=== PATIENT | male | born 1990 | race Caucasian/White ===

== ENCOUNTER 2024-05-14 18:32 | Inpatient (IN) | payer OTHER, SELFPAY ==
[2024-05-14 13:23] VITALS: BP 132/84
--- NOTE | 2024-05-14 13:33 | ED.GENMED ---
History of Present Illness
General
Chief Complaint: Chest Pain
Source: patient
Exam Limitations: none
Time Seen by Provider: 05/14/24 13:26
Nursing documentation reviewed up to this point in time: agreed with
History of Present Illness
History of Present Illness:
34-year-old male with a past medical history of Lzrdo-Jnxtqbxhj-Nnrzr who presents to the ER for evaluation of chest pain. Patient reports symptoms started Saturday morning and have been consistent although waxing and waning intensity since then. He
reports a sharp pain worse with inspiration. Denies any associated shortness of breath. Denies any nausea, vomiting. He has had low-grade fever he says. He says that initially he was seen at [facility] yesterday and had a workup there
(paperwork shows he had serial troponins which were flat, marginally elevated�high-sensitivity troponin of 40, 48; also had elevated CRP and ESR and a negative D-dimer) and ultimately was diagnosed with pericarditis and was discharged. He returns
today because he says this morning the pain was worse and he decided to come for reassessment here. He says since arrival in the ER his symptoms have abated and his symptoms are quite mild now. 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
any medication and cannot recall who he saw previously for cardiology.
Past History
Past History
ED Past Medical History: Other (Qxzua-Pycjhmvxn-Wapcs)
ED Past Surgical History: None
Social History
Tobacco: Smoker
Alcohol: Binge drinker
Review of Systems
Review of Systems
All Other Systems: ROS reviewed and negative except as documented in HPI and ROS
Constitutional: Reports fever; Denies chills
Respiratory: Denies cough or trouble breathing
Cardiac: Reports chest pain; Denies diaphoresis, palpitations or syncope
ABD/GI: Denies abdominal pain, nausea or vomiting
: Denies flank pain
Musculoskeletal: Denies neck pain or back pain
Neurological: Denies dizzy or headache
Phy Exam
Physical Exam
Physical Exam:
General: Awake, alert, oriented x3; no acute distress
Head: Normocephalic, atraumatic
Eyes: Conjunctiva normal, sclera anicteric
Throat: Airway intact, handling secretions
Neck: Trachea midline, supple without meningismus
Lungs: Clear to auscultation bilaterally, no wheezing, rales, rhonchi
Heart: Regular rate and rhythm, no murmurs, gallops, or rubs appreciated
Abd: Soft, non distended, nontender
Neuro: No gross deficits
Extremities: No edema in extremities, equal pulses in all extremities
Scores
Heart Failure Risk
Heart Failure Risk Score: Not Applicable
Heart Score for Chest Pain Patients
STEMI patient?: No
History: Slightly or Non-Suspicious
ECG: Nonspecific Repolarization
Age: </= 45 years
Risk Factors: No Risk Factors
Troponin: </= Normal Limit
Heart Score for Chest Pain Patients: 1
Heart Score Risk: 2.5% MACE over next 6 weeks
Withdrawal Assessment of Alcohol
Withdrawal Assessment Completed?: Not applicable
Course
Orders/Labs/Results
Orders:
Orders
05/14/24 13:11
EKG [Electrocardiogram (*1)] Urgent
Reason for Study: Chest Pain
Electrocardiogram (*1) Urgent
Reason for Study: Chest Pain
EKG- Treatment ONCE
EKG- Treatment ONCE
05/14/24 13:29
C-Reactive Protein Urgent
Comment: ADD ON
Complete Blood Count/With Diff Urgent
Comprehensive Metabolic Panel Urgent
ESR [Erythrocyte Sed Rate] Urgent
Protime/PTT Urgent
Troponin I Urgent
05/14/24 13:32
CARDIOLOGY CONSULT Urgent
Consulting Provider: Edy Reese
Was physician already notified: Yes
CR Chest - 2 Views Urgent
Comment:
Reason For Exam: chest pain
05/14/24 13:33
Echo 2D MMode Color/Doppler Urgent
Reason for Study: chest pain
Cardiology Consult: Edy Reese
05/14/24 13:51
Add On- LAB Urgent
Tests Added?: CRP
05/14/24 15:58
Add On- LAB Routine
Tests Added?: ESR
05/14/24 16:05
Ketorolac [Toradol] 15 mg IV NOW STA
05/14/24 16:16
Colchicine 0.6 mg PO NOW STA
05/14/24 16:29
Troponin I Urgent
05/14/24 16:50
Electrocardiogram (*1) Urgent
Reason for Study: Chest Pain
EKG- Treatment ONCE
05/14/24 16:56
MR Card Mri Morph & Funct Wo/w Routine
Comment:
Reason For Exam: Myopericarditis
OK for patient to be off Cardiac Monitoring for MRI: No
Recent pill cam endoscopy?: No
Pacemaker/Defibrillator?: No
Brain Aneurysm Clips?: No
Have you ever worked with metal? grinding metal? welding?: No
Cochlear(ear) implants?: No
Does Pt have a Temp Sensing Cath?: No
Does the patient have IV access?: No
Does the patient have any stents?: No
Abnormal Lab Results
05/14/24
13:29
WBC 14.1 H 10^3/uL
(4.8-10.8)
Absolute Neuts (auto) 10.8 H 10^3/uL
(1.4-6.5)
Absolute Monos (auto) 0.9 H 10^3/uL
(0.1-0.6)
Neutrophils % 76.6 H %
(42.2-75.2)
Lymphocytes % 15.8 L %
(20.5-51.1)
ESR 21 H mm/hour
(0-20)
Glucose 102 H mg/dl
(70-99)
Troponin I 0.036 H* ng/ml
C-Reactive Protein 158.60 H mg/L
(0.0-10.00)
05/14/24 13:29
05/14/24 13:29
Vital Signs
Initial and Last Documented VS:
Initial Vital Signs
Temp Pulse Resp BP Pulse Ox
36.7 C 126 27 132/84 95
05/14/24 13:23 05/14/24 13:23 05/14/24 13:23 05/14/24 13:23 05/14/24 13:23
Last Documented Vital Signs
Temp Pulse Resp BP Pulse Ox
36.7 C 104 24 132/84 96
05/14/24 13:23 05/14/24 14:45 05/14/24 14:45 05/14/24 13:23 05/14/24 14:45
MDM/Problems Addressed
Differential Diagnosis Includes:
Pericarditis, myocarditis, ACS, pneumothorax, pneumonia
MDM/Problems Addressed:
34-year-old male presents for evaluation of atypical/pleuritic chest pain for the past few days waxing waning intensity; diagnosed with pericarditis yesterday [facility] after elevated inflammatory markers and flat troponins. He says symptoms
increased today and he decided to come to the ER to be evaluated here. He arrived was tachycardic, mild tachypnea, normotensive. His EKG on arrival shows sinus tachycardia with ST changes initially read out as STEMI. Case was immediately
discussed with general cardiology who came to the bedside to assess given his recent history low suspicion that this is an acute STEMI especially 34-year-old an EKG certainly could be consistent with acute pericarditis. Will plan for stat
echocardiogram, hold off on activating [employer] for now. Labs sent off including CBC and a CMP, inflammatory markers, troponin level. Will check chest x-ray as well. Monitor closely reassess after the above.
Echocardiogram normal no effusion and no regional wall motion abnormalities. Labs showed marginal leukocytosis, CMP unremarkable. ESR and CRP are elevated. Troponin marginal at 0.036. Repeat downtrending 0.033. Chest x-ray shows no acute
disease. Case discussed with cardiology clinical suspicion at this point is for acute pericarditis however with troponin elevation and abnormal EKG cardiology recommending admission for trending of troponins and consideration for cardiac MRI. Case
discussed with hospitalist for admission.
*Radiology
Radiology exam reviewed: radiology read reviewed
*Pulse Oximetry
Patient hypoxic: no
*EKG
Interpreted by ED Provider?: Yes
Heart Rate: 109
Rate: tachycardiac
Rhythm: sinus tachycardia
[place]: normal axis
Interval: normal interval
QRS Pattern: normal QRS
Ischemia: non-specific ST changes (Diffuse ST changes)
*Critical Care Note
Total Time (30-74mins, 75-104mins- exclusive of procedures): Not Applicable
Data Reviewed
Review of Other/Old Records Reveals: Labs (Reviewed external labs from visit to [facility] yesterday which patient provided) and Records (Reviewed records which patient provided from [facility])
Source: patient and records
Patient Management
Discussion with other providers: Hospitalist (Discussed with hospitalist) and Signal Repairer (Discussed with interventional cardiology)
Escalation/DeEscalation of care consider admission/obs:
Admission indicated.
ED Attending Note
-
Portions of this chart may have been created with voice recognition software.� Occasional wrong word or��sound alike� substitutions may have occurred due to the inherent limitations of voice recognition software.
Discharge Plan
Departure
Patient Disposition: Admit
Date of Disposition: 05/14/24
Time of Disposition: 17:40
Admit to doctor: Harley
Presentation/result/management discussed w/ accepting MD/DO: Hospitalist
Discharge Problem:
Pericarditis, Chest pain
Prescriptions:
No Action
biotin 5 mg Capsule
5 mg PO DAILY
ibuprofen 800 mg Tablet
800 mg PO Q6HPRN PRN (Reason: mild pain)
aspirin 81 mg Tablet,Delayed Release (Dr/Ec)
162 mg PO BIDPRN PRN (Reason: chest pains)
melatonin 5 mg Tablet
5 mg PO HSPRN PRN (Reason: sleep)
doris extract 500 mg Capsule
500 mg PO DAILY
Emergen-C 1,000 mg Powder Effervescent In Packet
1 ea PO DAILY
turmeric root extract 1,053 mg Tablet
1,076 mg PO DAILY
Referrals:
UNKNOWN - PT DOES,NOT KNOW [Family Provider] -
Interventions
Interventions:
*Risk Screen - Suicide Last Done: 05/14/24 13:23
*General Assessment Last Done: 05/14/24 13:23
*Neglect/Abuse Screening Last Done: 05/14/24 13:23
ED- Cardiac Assessment Last Done: 05/14/24 13:35
Discharge Date and Time
Print Language: UZBEK
[2024-05-14 13:48] LABS: % Basophils 0.2 % (0-2); % Eosinophils 0.6 % (0-6); % Immature Granulocytes 0.3 % (0-0.5); % Lymphocytes 15.8 % (20.5-51.1); % Monocytes 6.5 % (1.7-9.3); % Neutrophils 76.6 % (42.2-75.2); Absolute Eosinophils 0.1 10^3/uL (0-0.7); Absolute Lymphocytes 2.2 10^3/uL (1.2-3.4); Absolute Monocytes 0.9 10^3/uL (0.1-0.6); Absolute Neutrophils 10.8 10^3/uL (1.4-6.5); Hematocrit 44.6 % (39.0-52.0); Hemoglobin 15.5 g/dL (13.0-18.0); Mean Corp Hgb Conc. 34.8 g/dL (33.0-37.0); Mean Corpuscular Hgb 29.5 pg (27.0-31.0); Mean Platelet Volume 9.7 fL (7.4-10.4); Nucleated Red Blood Cells % 0 % (-); Platelet Count 250 10^3/uL (130-400); Red Blood Cell Count 5.25 10^6/uL (4.70-6.10); Red Cell Dist. Width 11.9 % (11.5-14.5); White Blood Cell Count 14.1 10^3/uL (4.8-10.8)
--- NOTE | 2024-05-14 13:52 | CON.CAR ---
Consultation
Consultation Request
Date/Time Consultation Requested: 05/14/2024; 13:19
Date/Time Consultation Performed: 05/14/2024; 13:40
Requesting Provider: Theodore Canseco M.D.
Performing Provider: Edy Reese D.O.
Reason for Consultation: Chest pain, ST elevation.
Medical History
-
Chief Complaint: Chest pain x 3 days.
History of Present Illness:
34 y/o male with WPW but not on any medications presenting with chest pain, described as a 'pressure' sensation for the past three days. The patient attended the [employer] game, where the second string team soundly defeated an abysmal [employer] squad. On Saturday morning, he awoke with chest discomfort. The discomfort is exacerbated by a laying position. It is noticeable with deep inspiration, but does not limit respiration. It improves with sitting up and standing. There is
no exacerbation with activity.
The patient had continued chest pain through yesterday, when he presented to [facility]. He was evaluated and diagnosed with pericarditis. He was discharged with an Rx for ibuprofen. This morning, the patient had chills/rigors. He
believes he had a fever, but did not take a temperature. He reports testing negative for COVID/Influenza. His mother saw him this morning and brought him to [place] ER for further evaluation. EKG showed ST elevations in leads I/aVL concerning
for acute STEMI. STEMI alert was called, but cancelled after further review showed that there are diffuse, non-specific TOBI and his clinical story being less consistent with ACS.
At the time of evaluation, the patient is feeling generally improved. He is sitting up and denies chest pain at this time. He denies any associated shortness in breath, palpitations, syncope or presyncope.
Past Medical History
Past Medical History: Arrhythmias (WPW - not on medications.)
Past Surgical History: Other ([place] tooth extraction.)
Social History
Tobacco: Vaping
Alcohol: Occasional
Drug: None
Personal: Partner (Engaged.)
Living: Alone
Employment: Employed
Family History
Family History: CAD (Maternal grandmother and grandfather.)
Allergies / Home Medications
Allergy/AdvReac Type Severity Reaction Status Date / Time
No Known Allergies Allergy Verified 05/14/24 13:18
�Medication �Instructions �Recorded �Confirmed �Type
propranolol 10 mg tablet 10 mg PO DAILY PRN palpitations 07/03/14 07/03/14 History
Review of Systems
-
History Source: Patient and Family
All other systems: Negative unless noted
Constitutional: Fever
EENT: No Symptoms
Respiratory: No Symptoms
Cardiac: Chest Pain and Diaphoresis
Abdomen/GI: No Symptoms
: No Symptoms
Musculoskeletal: No Symptoms
Skin: No Symptoms
Neurological: No Symptoms
Endocrine: No Symptoms
Hematologic/Lymphatic: No Symptoms
Physical Exam
Vital Signs
Temp Pulse Resp BP Pulse Ox
36.7 C 121 23 132/84 96
05/14/24 13:23 05/14/24 13:30 05/14/24 13:30 05/14/24 13:23 05/14/24 13:30
Lab Results
05/14/24 13:29
Physical Exam
General: Well Developed, Well Nourished, No Apparent Distress, Comfortable and Good Appetite
HEENT: Normocephalic, Anicteric and Moist Mucous Membranes
Respiratory: Clear and Non Labored Respirations
Cardiac: S1/S2 and Regular Rhythm
Breast: Deferred by me
GI: Soft, Non Tender, Non Distended and Normal Bowel Sounds
Rectal: Deferred by Provider
Musculoskeletal: No Clubbing, No Cyanosis and No Edema
Skin: Warm and Dry
Neuro: AO x 3
Hematologic/Lymphatic: No Lymphadenopathy
Psych: Calm
Impression / Plan
-
34 y/o male with WPW on no medications presenting with positional chest pain x3 days and recent diagnosis of pericarditis.
#Chest pain
-Acute.
-DDx includes pericarditis (non-specific EKG changes, positional chest pain) ischemia, aneurysm (highly unlikely), pulmonary embolism.
-STAT echo ordered. If there are regional wall motion abnormalities, we will proceed to coronary angiography.
-Check ESR/CRP/Troponin. PE unlikely, and D-Dimer will likely not be useful given the inflammatory state of pericarditis.
-Assuming no signs of ischemia, I would tend to agree with our colleagues at [facility] in the diagnosis of pericarditis.
-Accordingly, we will start high dose ibuprofen taper and colchicine 0.6 mg PO BID for 3 months.
#WPW
-Chronic.
-Delta wave observed on prior EKG.
-Patient denies palpitations.
Data Reviewed
-
EKG: Tracing Personally Visualized and interpreted, Report Reviewed by me, Discussed with Physician, Discussed with Patient and Discussed with Family
Labs: Labs Reviewed by me and Discussed with Physician
Old Records: Reviewed
[2024-05-14 13:56] LABS: INR 1.02; PT 13.9 Sec (11.4-14.6)
[2024-05-14 13:57] LABS: APTT 33.6 Sec (23.4-35.0)
[2024-05-14 14:07] LABS: ALT (SGPT) 40 U/L (0-50); AST (SGOT) 31 U/L (17-59); Alkaline Phosphatase 82 U/L (38-126); Blood Urea Nitrogen 10 mg/dl (9-20); Calcium 9.8 mg/dl (8.4-10.2); Carbon Dioxide 29 mmol/L (22-30); Chloride 98 mmol/L (98-107); Glucose 102 mg/dl (70-99); Potassium 4.2 mmol/L (3.5-5.1); Sodium 138 mmol/L (135-145); Total Bilirubin 1.3 mg/dl (0.2-1.3); Total Protein 8.2 g/dl (6.3-8.2); eGFR > 60.00
[2024-05-14 14:21] LABS: Troponin I 0.036 ng/ml
[2024-05-14 15:32] LABS: Erythrocyte Sed Rate 21 mm/hour (0-20)
[2024-05-14] MEDS: COLCHICINE 0.6 MG PO ×2 (16:26→23:10)
[2024-05-14] MEDS: TORADOL 15 MG IV (16:26)
[2024-05-14 17:06] LABS: Troponin I 0.033 ng/ml
--- NOTE | 2024-05-14 17:44 | HPS.HSE ---
Family Physician
<PREM Wade - Last Filed: 05/14/24 18:12>
-
Family Physician: NOT KNOW UNKNOWN - PT DOES
Chief Complaint
<PREM Wade - Last Filed: 05/14/24 18:12>
-
Chest pain
History of Present Illness
Patient is a 34-year-old female with past medical history significant for Nknxq-Woqypfsly-Kyicd syndrome presented to [place] ED for evaluation of chest pain that has been intermittent since Saturday/Saturday. It is reported that patient was at
[employer] where he initially noticed some chest discomfort noted as pressure and non-radiating. On Saturday patient stated pain was more noticeable that it had periods of pressure and being sharp. The chest pain was exacerbated by lying
down or deep breathing. He was seen at [facility] yesterday and diagnosed with pericarditis and discharged with ibuprofen. He visited with his mom today and had episode of chest pain so she brought him for further evaluation. Patient
reports rigors/chills this morning, assumes he had a fever but did not check. He states he was negative for Covid and influenza.
Medical History
<PREM Wade - Last Filed: 05/14/24 18:12>
Past Medical History
Past Medical History: Reports Other
Additional Past Medical History:
Nmgln-Akldtnuxf-Khpqi syndrome
Past Surgical History: Reports None
Social History
Tobacco: Vaping
Alcohol: Binge drinker (when drinks often will have >= 5)
Family History
Family History: Not pertinent
Allergies / Home Medications
Allergies reflects when Allergies were last updated in [employer].
Home Medications with original date entered in [employer]
Allergy/Medication List:
Allergies
Allergy/AdvReac Type Severity Reaction Status Date / Time
No Known Allergies Allergy Verified 05/14/24 13:18
Home Medications
ascorbic acid 1,000 ri-wjgzbkedqdef-rwmcidqq powder effervescent pack (Emergen-C) 1 ea PO DAILY 05/14/24
aspirin 81 mg tablet,delayed release 162 mg PO BIDPRN PRN chest pains 05/14/24
biotin 5 mg capsule 5 mg PO DAILY 05/14/24
ibuprofen 800 mg tablet 800 mg PO Q6HPRN PRN mild pain 05/14/24
doris extract 500 mg capsule 500 mg PO DAILY 05/14/24
melatonin 5 mg tablet 5 mg PO HSPRN PRN sleep 05/14/24
turmeric root extract 1,053 mg tablet 1,076 mg PO DAILY 05/14/24
<Dandre Chappell MD - Last Filed: 05/14/24 18:08>
Past Medical History
Past Surgical History: Reports None
Social History
Tobacco: Smoker
Alcohol: Binge drinker
Drug: None
Family History
Family History: Not pertinent
Allergies / Home Medications
Allergy/Medication List:
Allergies
Allergy/AdvReac Type Severity Reaction Status Date / Time
No Known Allergies Allergy Verified 05/14/24 13:18
Home Medications
ascorbic acid 1,000 xk-uezmtfdvsbyg-npyndzka powder effervescent pack (Emergen-C) 1 ea PO DAILY 05/14/24
aspirin 81 mg tablet,delayed release 162 mg PO BIDPRN PRN chest pains 05/14/24
biotin 5 mg capsule 5 mg PO DAILY 05/14/24
ibuprofen 800 mg tablet 800 mg PO Q6HPRN PRN mild pain 05/14/24
doris extract 500 mg capsule 500 mg PO DAILY 05/14/24
melatonin 5 mg tablet 5 mg PO HSPRN PRN sleep 05/14/24
turmeric root extract 1,053 mg tablet 1,076 mg PO DAILY 05/14/24
Review of Systems
<PREM Wade - Last Filed: 05/14/24 18:12>
-
History Source: Patient
Constitutional: Reports No Symptoms
EENT: Reports No Symptoms
Respiratory: Reports No Symptoms
Cardiac: Reports Chest Pain
Abdomen/GI: Reports No Symptoms
: Reports No Symptoms
Musculoskeletal: Reports No Symptoms
Skin: Reports No Symptoms
Neurological: Reports No Symptoms
Endocrine: Reports No Symptoms
Hematologic/Lymphatic: Reports No Symptoms
Psych: Reports No Symptoms
<Dandre Chappell MD - Last Filed: 05/14/24 18:08>
-
A 12 point ROS was completed and negative except as noted: Yes
Physical Exam
<PREM Wade - Last Filed: 05/14/24 18:12>
Vital Signs
Vital Signs
Temp Pulse Resp BP Pulse Ox
98.1 F 104 24 132/84 96
05/14/24 13:23 05/14/24 14:45 05/14/24 14:45 05/14/24 13:23 05/14/24 14:45
Physical Exam
General: Well Developed, Well Nourished, No Apparent Distress, Comfortable and Conversant
HEENT: NormoCephalic, Moist mucous membranes, Atraumatic, PERRLA, Nose Appears Normal and Ears Appear Normal
Respiratory: Clear and Non Labored Respirations
Cardiac: S1/S2 and Regular Rhythm
GI: Soft, Non Tender, Non Distended and Normal Bowel Sounds; No Organomegaly
Rectal: Deferred by Provider
Genito-urinary: Deferred by me
Musculoskeletal: No Clubbing, No Cyanosis and No Edema
Skin: No Rash
Neuro: Nonfocal/grossly intact
Hematologic/Lymphatic: No Lymphadenopathy
Psych: Calm and Intact Judgment/Insight
<Dandre Chappell MD - Last Filed: 05/14/24 18:08>
Physical Exam
General: Well Developed, Well Nourished and No Apparent Distress
Respiratory: Clear
Cardiac: S1/S2 and Regular Rhythm; No Murmur or Rub
GI: Soft, Non Tender, Non Distended and Normal Bowel Sounds
Musculoskeletal: No Edema
Neuro: Awake, Alert, Oriented and No Motor Deficits
Psych: Calm
Laboratory Results
<PREM Wade - Last Filed: 05/14/24 18:12>
-
05/14/24 13:29
05/14/24 13:29
Laboratory Results
PT 13.9 Sec (11.4-14.6) 05/14/24 13:29
INR 1.02 05/14/24 13:29
APTT 33.6 Sec (23.4-35.0) 05/14/24 13:29
Total Bilirubin 1.3 mg/dl (0.2-1.3) 05/14/24 13:29
AST 31 U/L (17-59) 05/14/24 13:29
ALT 40 U/L (0-50) 05/14/24 13:29
Alkaline Phosphatase 82 U/L (38-126) 05/14/24 13:29
Troponin I 0.033 ng/ml 05/14/24 16:29
Data Reviewed
<PREM Wade - Last Filed: 05/14/24 18:12>
-
Diagnostic Radiology: Report Reviewed by me (CXR)
Medical Tests (Nuc Med, Echo, EKG etc): Report Reviewed by me (EKG and ECHO)
Lab Data: Labs Reviewed by me
Impression/Plan
<PREM Wade - Last Filed: 05/14/24 18:12>
-
IMPRESSION/PLAN:
#Pericarditis
WBC 14.1
Troponin 0.036, 0.033
EKG: Critical Test Result: STEMI
SINUS TACHYCARDIA
ST ELEVATION CONSIDER INFEROLATERAL INJURY OR ACUTE INFARCT
ACUTE ND / STEMI
ECHO: Normal biventricular size and systolic function without regional wall motion
abnormality. Estimated LVEF 55-60%.
No significant valve disease.
CXR: No active cardiopulmonary disease.
- Admit to IVU
- Consult Cardiology
- start Protonix 40mg daily
- start ibuprofen 600mg TID
- start colchicine 0.6 mg PO BID for 3 months
#Halem-Ldjqguibq-Lszdu syndrome
Code Status: Full Code
DVT Prophylaxis: SCDs
--- NOTE | 2024-05-14 18:08 | W.PN.UPDATE ---
Update Note
Progress Note Update
I saw and examined the patient.
The COMPUTER HARDWARE TECHNICIAN's note was reviewed and I agree with the note.
Patient is a 34-year-old male with a history of Joxca-Oupepluzg-Zxakt syndrome, tobacco use, alcohol use came to ER with persistent sternal pressure pain that has been going on from weekend. Patient was in [employer] game after which patient noticed
to having sternal pressure-like pain. Patient have associated subjective fever and chills and was reporting sleep disturbance. Patient was seen in [facility] and was diagnosed for pericarditis and provided ibuprofen. Did not have much
improvement in symptoms and came to [place] ER for further evaluation. Pain is aggravated by deep breath. Patient have episodic palpitation although does not describe this tachycardia. Patient does have history of Fkfpa-Hcjljsuqv-Kvrow
syndrome diagnosed few years ago, was intended to undergo ablation although not done due to insurance issues.
HEENT: No pallor, cyanosis, or jaundice. Throat clear.
NECK: Supple. No JVD.
RESPIRATORY: Lungs clear to auscultation.
CVS: S1, S2 normal. RRR. No murmur, rub or gallop.
ABDOMEN: Soft, non-tender. No distension. BS+/normal.
EXTREMITIES: No peripheral cyanosis or edema.
INSTRUCTOR PHYSICAL: AOx3. No focal deficits.
Acute pericarditis
-EKG showing diffuse ST segment nonspecific elevation
-Marginal troponin elevation of 0.035
-CRP elevated/patient tachycardic although no other signs supporting VTE
-Echocardiogram done and not showing any significant effusion
-Cardiology recommending a cardiac MRI
-Evaluated by cardiology and recommended to be maintained on colchicine 0.6 mg twice daily and ibuprofen
-Add PPI for reflux prophylaxis
-Significant pain, adding oxycodone for pain control
DVT PPX - lovenox
Full code
[2024-05-14 21:43] VITALS: BMI 30.1
[2024-05-14 21:47] VITALS: BP 126/82
[2024-05-14 22:00] VITALS: BP 141/91
[2024-05-14] MEDS: DILAUDID 0.25 MG IV (22:08)
--- NOTE | 2024-05-14 22:29 | PTCARENOTE ---
Addendum entered by Rolo Robles RN 05/14/24 23:51:
PRN IV Dilaudid able to 'take the edge off the pain' per pt. Reporting continued 8/10 chest discomfort. PRN Oxycodone 10mg provided; med education provided on pain meds and side effects. Education provided on colchicine for pericarditis. Pt
verbalized understanding. Pt appreciative of care.
Original Note:
Patient arrived into room 3343 with ED RN approx @ [phone]. Mother (Genevieve) at bedside. Oriented to room and use of call phillips. Patient able to ambulate to bed from stretcher. Pt reports 10/10 pain to chest/shoulders/upper back. Pain is aggravated with
movement. Pt reports Toradol did not relieve pain. PRN Dilaudid IV provided. Spoke with pharmacist Nataliia about colchicine and ibuprofen ordered at the same time; Awaiting provider decision.. Mother brought in soup from [facility]; Pt is eating very
minimally d/t pain. Call phillips and tray table left within reach. Mother at bedside.
Patient and mother updated on plan of care: Cardiac MRI, pain control, cardiology consult, colchicine & ibuprofen.
[2024-05-14] MEDS: ROXICODONE 10 MG PO (23:09)
--- NOTE | 2024-05-14 23:53 | PTCARENOTE ---
MSAS protocol triggered by ETOH admission questions. Patient binges 5+ drinks every weekend. Last alcoholic drink was Saturday05/10/24. PREM Rios made aware. MSAS protocol followed; score of 2 for HR. Patient is in sinus tachycardia 100-140s on
tele. Patient updated, and understands.
[2024-05-15] VITALS (13 sets, daily range): BP systolic 103–129; BP diastolic 70–90
[2024-05-15] MEDS: ROXICODONE 10 MG PO ×2 (03:46→07:58)
[2024-05-15 04:30] LABS: Hematocrit 41.5 % (39.0-52.0); Hemoglobin 14.6 g/dL (13.0-18.0); Mean Corp Hgb Conc. 35.2 g/dL (33.0-37.0); Mean Corpuscular Hgb 30.1 pg (27.0-31.0); Mean Corpuscular Volume 85.6 fL (80.0-94.0); Mean Platelet Volume 9.9 fL (7.4-10.4); Platelet Count 244 10^3/uL (130-400); Red Blood Cell Count 4.85 10^6/uL (4.70-6.10); Red Cell Dist. Width 11.9 % (11.5-14.5); White Blood Cell Count 14.6 10^3/uL (4.8-10.8)
[2024-05-15 04:56] LABS: Blood Urea Nitrogen 10 mg/dl (9-20); Calcium 9.1 mg/dl (8.4-10.2); Carbon Dioxide 26 mmol/L (22-30); Chloride 97 mmol/L (98-107); Estimated Creatinine Clearance > 125 ml/min; Glucose 113 mg/dl (70-99); HDL Cholesterol 55 mg/dl; LDL Cholesterol, Calculated 78 mg/dl; Potassium 4.4 mmol/L (3.5-5.1); Sodium 137 mmol/L (135-145); Total Cholesterol 143 mg/dl (50-199); Triglyceride 54 mg/dl (10-149); Very Low Density Lipoprotein 10 mg/dl (0-30); eGFR > 60.00
[2024-05-15] MEDS: DILAUDID 0.25 MG IV ×2 (07:26→23:14)
--- NOTE | 2024-05-15 07:33 | W.PN.CD ---
Today's Communication / Plan
-
Start ibuprofen taper:
-800 mg TID x 3 days, then
-600 mg TID x 3 days, then
-400 mg TID x 3 days, then
-400 mg BID x 3 days, then
-400 mg daily x 3 days, then
-200 mg daily x 3 days, then stop.
Continue colchicine 0.6 mg x 3 months.
Cardiac MRI.
If there are no high risk MR findings, the patient can probably be discharged to outpatient follow up.
Impression / Plan
-
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
#Chest pain/Myopericarditis
-Acute.
-Initial troponin elevated, now normal. CRP 158.
-Cardiac MRI ordered.
-He was given ketorolac, oxycodone and hydromorphone.
-Patient started on colchicine. Continue 0.6 mg BID x 3 months.
-Start high dose PO ibuprofen taper.
-800 mg TID x 3 days, then
-600 mg TID x 3 days, then
-400 mg TID x 3 days, then
-400 mg BID x 3 days, then
-400 mg daily x 3 days, then
-200 mg daily x 3 days, then stop.
#WPW
-Chronic.
-Delta wave observed on prior EKG.
-Patient denies palpitations.
#Sinus tachycardia
-Unclear cause.
-Denies symptoms of EtOH withdrawal.
-He does vape - possible nicotine withdrawal. Nicotine patch ordered.
-Encouraged hydration.
#EtOH use
-Unclear chronicity.
-5 drinks/day on weekends.
-MSAS protocol. No EtOH since 05/10/2024.
Subjective/Interval History:
No acute events.
Pain recurred. Colchicine started. NSAIDS/narcotics given.
Troponin 0.036 --> 0.033.
Mildly tachycardic.
DATA:
TTE, 05/14/2024:
CONCLUSIONS
Normal biventricular size and systolic function without regional wall motion
abnormality. Estimated LVEF 55-60%.
No significant valve disease.
No prior study available for comparison.
Physical Exam
Vital Signs/Labs
Vital Signs
Temp Pulse Resp BP Pulse Ox
37.7 C 102 18 120/77 91
05/15/24 04:45 05/15/24 06:30 05/15/24 06:30 05/15/24 06:00 05/15/24 06:30
05/13/24 05/14/24 05/15/24
11:59 11:59 11:59
Actual Weight 95.2 kg
05/15/24 03:52
05/15/24 03:52
PT 13.9 Sec (11.4-14.6) 05/14/24 13:29
INR 1.02 05/14/24 13:29
APTT 33.6 Sec (23.4-35.0) 05/14/24 13:29
Triglycerides 54 mg/dl (10-149) 05/15/24 03:52
LDL Cholesterol, Calc 78 mg/dl 05/15/24 03:52
VLDL Cholesterol, Calc 10 mg/dl (0-30) 05/15/24 03:52
HDL Cholesterol 55 mg/dl 05/15/24 03:52
LAB Results
05/14/24 05/14/24
13:29 16:29
Troponin I 0.036 H* 0.033
Physical Exam
Constitutional: No acute distress and Comfortable
EENT: Anicteric and Moist mucous membranes
Cardiovascular: Rhythm & rate is regular, Pedal edema is absent, JVD pressure is normal, S1S2 is normal and Rub present
Respiratory: Respiratory effort normal, Lungs clear to auscul., Wheeze Absent, Crackles Absent and Rhonchi Absent
GI: Soft, Distention absent, Flat, Non tender and Normal bowel sounds
Neuro/Psych: AO x 3
Data Reviewed
-
Date of Service: May 15, 2024
Medical Decision Making: Reviewed Test Results, Tests Ordered, Independent Historian Assessment and Test Interpretation
EKG: Tracing Personally Visualized and interpreted and Report Reviewed by me
Echo: Tracing Personally Visualized and interpreted and Report Reviewed by me
Labs: Labs Reviewed by me
Old Records: Reviewed
[2024-05-15] MEDS: PROTONIX 40 MG PO (07:57)
[2024-05-15] MEDS: COLCHICINE 0.6 MG PO ×2 (07:58→21:15)
[2024-05-15] MEDS: MOTRIN 800 MG PO ×3 (09:11→21:15)
[2024-05-15] MEDS: NICODERM TRANSDERMAL 14 MG TRANSDERM ×2 (09:41→21:15)
[2024-05-15 09:53] LABS: Troponin I 0.075 ng/ml
--- NOTE | 2024-05-15 10:13 | PTCARENOTE ---
Addendum entered by Lilo Garcia RN 05/15/24 14:42:
Patient is having periods of diaphoresis. Discussed with Dr. Chappell.
Original Note:
Patient is for cardiac MRI now. RN to go down with patient. Pain went from a 7 to a 4 with current regimen .Patient verbalizing understanding of plan of care. Mother at bedside.
[2024-05-15] MEDS: ROXICODONE 5 MG PO ×3 (12:39→21:16)
--- NOTE | 2024-05-15 15:13 | W.PN.HOSP.TC ---
Today's Communication/Plan
-
see note
Assessment / Plan
Assessment / Plan
Cardiac MRI
1. SEVERE ACUTE PERICARDITIS.
2. Mild acute myocarditis.
3. MODERATE BILATERAL LOWER LOBE PNEUMONIA.
4. Global systolic LV function: Normal.
5. Global systolic RV function: Normal.

Acute pericarditis
-EKG showing diffuse ST segment nonspecific elevation
-Marginal troponin elevation of 0.035 > 0.03 > 0.07
-CRP elevated/patient tachycardic although no other signs supporting VTE
-Echocardiogram done and not showing any significant effusion
-Cardiac MRI reviewed and confirmed the finding
-Evaluated by cardiology and recommended to be maintained on colchicine 0.6 mg twice daily and ibuprofen
-Add PPI for reflux prophylaxis
-Significant pain, adding oxycodone for pain control
Troponin elevation
-Known myocardial ischemic injury and pericarditis related
Bilateral atelectasis
-Noted on cardiac MRI, incentive spirometer ordered
-Mild leukocytosis, no other signs to confirm pneumonia
h/o of WPW syndrome
-will need to f/u with EP cardiology
Tobacco use
-nicotine patch ordered
DVT PPX - lovenox
Full code
Total time spent 55 mins
Anticipated Discharge: Within 24 hours
Subjective/Interval History
-
Date of Service: May 15, 2024
Sternal pain is better
No palpitation/dizziness
No other issues overnight
Objective Data
-
Labs:
Laboratory Results
05/15/24
03:52
WBC 14.6 H
Hgb 14.6
Hct 41.5
Plt Count 244
Sodium 137
Potassium 4.4
Chloride 97 L
Carbon Dioxide 26
BUN 10
Creatinine 0.7
Glucose 113 H
Calcium 9.1
Vital Signs:
Vital Signs
Temp Pulse Resp BP Pulse Ox
98.3 F 94 14 110/77 93
05/15/24 07:51 05/15/24 14:00 05/15/24 14:00 05/15/24 14:00 05/15/24 14:00
I&O
05/14/24 05/15/24 05/16/24
06:59 06:59 06:59
Intake Total 200 / 200
Output Total 625 / 625
Balance -625 / -625 200 / 200
Review of Systems
-
Respiratory: Reports No Symptoms
Cardiac: Reports Chest Pain and Diaphoresis
Abdomen/GI: Reports No Symptoms
Physical Exam
-
General: No Apparent Distress and Comfortable
HEENT: Negative Oxygen
Respiratory: Clear to Auscultation
Cardiac: Regular Rhythm, S1/S2 and Tachycardic; Negative Murmur or Rub
GI: Soft, Nontender and Nondistended
Musculoskeletal: No Edema
Neuro: Awake, Alert, Oriented, No Motor Deficits and Nonfocal/Grossly Intact
Psych: Calm
--- NOTE | 2024-05-15 16:21 | CM ---
MRI today for pericarditis. Room air. MSAS per nursing.
Met with patient and mother Genevieve;
the patient resides alone in an apartment in a multi story apartment building with elevator.
He was independent in ADLs and ambulation.
The patient has no DME or outpatient services in places such as .
He saw a PCP in [place] for a physical - name unknown.
Pharmacy - [facility]
The patient will be staying with his mother at her home in [place] for a few days at d/c.
Substance Abuse Consult: alcohol withdrawal risk
Offered [facility] for support with drinking and patient declined saying it wasn't needed.
No CM d/c needs identified.
Plan home.
[2024-05-15] MEDS: MELATONIN 5 MG PO (23:15)
--- NOTE | 2024-05-16 00:34 | PTCARENOTE ---
Patient AAOx3. Normal sinus to sinus tach on tele. 95% on room air. Pt having 5/10 pain in shoulders and pt states that the pain 'radiated to the neck'. Administered PRN Enriqueta. Pt experiencing break through pain and still rates pain a 5/10 and asking
for pain medication. Administered PRN Dilaudid. Pt reports difficulty sleeping, administered PRN melatonin. Pt is now sleeping and what appears to be comfortable. Pt OOB to the bathroom to wash up. VSS. Pt's significant other staying over. Call phillips
is within reach.
[2024-05-16 01:14] VITALS: BP 115/72
[2024-05-16 02:00] VITALS: BP 104/63
[2024-05-16 04:00] VITALS: BP 99/58
[2024-05-16 04:48] LABS: Hematocrit 41.7 % (39.0-52.0); Hemoglobin 14.3 g/dL (13.0-18.0); Mean Corp Hgb Conc. 34.3 g/dL (33.0-37.0); Mean Corpuscular Hgb 29.9 pg (27.0-31.0); Mean Corpuscular Volume 87.1 fL (80.0-94.0); Mean Platelet Volume 9.3 fL (7.4-10.4); Platelet Count 230 10^3/uL (130-400); Red Blood Cell Count 4.79 10^6/uL (4.70-6.10); Red Cell Dist. Width 11.5 % (11.5-14.5); White Blood Cell Count 9.5 10^3/uL (4.8-10.8)
[2024-05-16] MEDS: ROXICODONE 5 MG PO (04:53)
[2024-05-16 05:15] LABS: Blood Urea Nitrogen 18 mg/dl (9-20); Calcium 9.2 mg/dl (8.4-10.2); Carbon Dioxide 29 mmol/L (22-30); Chloride 97 mmol/L (98-107); Estimated Creatinine Clearance > 125 ml/min; Glucose 104 mg/dl (70-99); Potassium 4.5 mmol/L (3.5-5.1); Sodium 137 mmol/L (135-145); eGFR > 60.00
[2024-05-16 06:20] VITALS: BP 112/66
[2024-05-16 08:13] VITALS: BP 113/77
[2024-05-16] MEDS: NICODERM TRANSDERMAL 14 MG TRANSDERM (08:17)
[2024-05-16] MEDS: COLCHICINE 0.6 MG PO (08:17)
[2024-05-16] MEDS: PROTONIX 40 MG PO (08:17)
[2024-05-16] MEDS: MOTRIN 800 MG PO (08:17)
--- NOTE | 2024-05-16 09:44 | PTCARENOTE ---
Assumed care of patient this morning. His only complaint was mild pain to his anterior left clavicle/shoulder area. Pt given scheduled Motrin.
Assessment, care and VS as charted.
--- NOTE | 2024-05-16 10:24 | CM ---
Spoke with patient who was preparing for discharge. The patient says he feels ready for discharge home today. His fiancee will transport him home to his mother's house, where he plans to stay for a few days.
No CM d/c needs identified.
Plan home today.
--- NOTE | 2024-05-16 11:18 | W.PN.CD ---
Today's Communication / Plan
-
NSAID chosen: ASA, 2-3 week course, this taper chosen by Dr. Reese:
-800 mg TID x 3 days, then
-600 mg TID x 3 days, then
-400 mg TID x 3 days, then
-400 mg BID x 3 days, then
-400 mg daily x 3 days, then
-200 mg daily x 3 days, then stop.
Colchicine 0.6 mg BID for 3 months then STOP
I told him to restrict exercise/physical exertion until OK'ed by Dr. Reese
Our office will reach out for OV post-hospital followup
OK for home from our perspective
Impression / Plan
-
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
#Chest pain/Myopericarditis
-Acute ==> MUCH IMPROVED!!
-Initial troponin elevated, now normal. CRP 158.
-Cardiac MRI: Confirms myopericarditis
-He was given ketorolac, oxycodone and hydromorphone.
-Patient started on colchicine. Continue 0.6 mg BID x 3 months.
-Start high dose PO ibuprofen taper.
-800 mg TID x 3 days, then
-600 mg TID x 3 days, then
-400 mg TID x 3 days, then
-400 mg BID x 3 days, then
-400 mg daily x 3 days, then
-200 mg daily x 3 days, then stop.
#WPW Pattern
-Chronic.
-Delta wave observed on prior EKG.
-Patient denies palpitations.
#EtOH use
-Unclear chronicity.
-5 drinks/day on weekends.
-MSAS protocol. No EtOH since 05/10/2024.
Subjective/Interval History:
Feels much better, not 100%
DATA:
TTE, 05/14/2024:
CONCLUSIONS
Normal biventricular size and systolic function without regional wall motion
abnormality. Estimated LVEF 55-60%.
No significant valve disease.
No prior study available for comparison.
Physical Exam
Vital Signs/Labs
Vital Signs
Temp Pulse Resp BP Pulse Ox
98 F 89 27 113/77 92
05/16/24 04:51 05/16/24 10:00 05/16/24 10:00 05/16/24 08:13 05/16/24 10:00
05/15/24 05/16/24 05/17/24
06:59 06:59 06:59
Actual Weight 95.2 kg
05/16/24 04:33
05/16/24 04:33
PT 13.9 Sec (11.4-14.6) 05/14/24 13:29
INR 1.02 05/14/24 13:29
APTT 33.6 Sec (23.4-35.0) 05/14/24 13:29
Triglycerides 54 mg/dl (10-149) 05/15/24 03:52
LDL Cholesterol, Calc 78 mg/dl 05/15/24 03:52
VLDL Cholesterol, Calc 10 mg/dl (0-30) 05/15/24 03:52
HDL Cholesterol 55 mg/dl 05/15/24 03:52
LAB Results
05/14/24 05/14/24 05/15/24
13:29 16:29 09:21
Troponin I 0.036 H* 0.033 0.075 H*
05/16/24
04:33
Troponin I 0.040 H*
Physical Exam
Constitutional: No acute distress
EENT: Anicteric
Cardiovascular: Rhythm & rate is regular and Rub absent
Respiratory: Respiratory effort normal, Lungs clear to auscul. and Wheeze Absent
GI: Soft, Distention absent and Non tender
Neuro/Psych: AO x 3
Data Reviewed
-
Date of Service: May 16, 2024
Echo: Tracing Personally Visualized and interpreted (normal)
X-Ray/CT/US/MRI/NUC/PET: Report Reviewed by me (MRI impressive pericarditis, and myocarditis)
--- NOTE | 2024-05-16 14:56 | W.PN.HOSP.TC ---
Today's Communication/Plan
-
D/c home
Assessment / Plan
Assessment / Plan
Cardiac MRI
1. SEVERE ACUTE PERICARDITIS.
2. Mild acute myocarditis.
3. MODERATE BILATERAL LOWER LOBE PNEUMONIA.
4. Global systolic LV function: Normal.
5. Global systolic RV function: Normal.

Acute pericarditis
-EKG showing diffuse ST segment nonspecific elevation
-Marginal troponin elevation of 0.035 > 0.03 > 0.07
-CRP elevated/patient tachycardic although no other signs supporting VTE
-Echocardiogram done and not showing any significant effusion
-Cardiac MRI reviewed and confirmed the finding
-Evaluated by cardiology and recommended to be maintained on colchicine 0.6 mg twice daily and ibuprofen taper by cards.
-Added PPI for reflux prophylaxis
-Significant pain, adding oxycodone for pain control
Troponin elevation
-Known myocardial ischemic injury and pericarditis related
Bilateral atelectasis
-Noted on cardiac MRI, incentive spirometer ordered
-Mild leukocytosis, no other signs to confirm pneumonia
h/o of WPW syndrome
-will need to f/u with EP cardiology
Tobacco use
-nicotine patch ordered
DVT PPX - lovenox
Full code
More than 30 minutes spent in discharge including
Final examination of the patient
Summarizing hospital stay
Instructions for continuing care to all relevant caregivers
Preparation of discharge records, prescriptions, and referral forms
Total time spent (in minutes): 38 mins
Anticipated Discharge: Today
Subjective/Interval History
-
Date of Service: May 16, 2024
Chest pain/chills better
No new issues overnight
Heart rate slowing down
Objective Data
-
Labs:
Laboratory Results
05/16/24
04:33
WBC 9.5
Hgb 14.3
Hct 41.7
Plt Count 230
Sodium 137
Potassium 4.5
Chloride 97 L
Carbon Dioxide 29
BUN 18
Creatinine 0.8
Glucose 104 H
Calcium 9.2
Vital Signs:
Vital Signs
Temp Pulse Resp BP Pulse Ox
98 F 89 27 113/77 92
05/16/24 04:51 05/16/24 10:00 05/16/24 10:00 05/16/24 08:13 05/16/24 10:00
I&O
05/15/24 05/16/24 05/17/24
06:59 06:59 06:59
Intake Total 200 / 200
Output Total 625 / 625
Balance -625 / -625 200 / 200
Review of Systems
-
Respiratory: Reports No Symptoms
Cardiac: Reports No Symptoms
Abdomen/GI: Reports No Symptoms
Physical Exam
-
General: No Apparent Distress and Comfortable
HEENT: Negative Oxygen
Respiratory: Clear to Auscultation
Cardiac: Regular Rhythm, S1/S2 and Tachycardic; Negative Murmur or Rub
GI: Soft, Nontender and Nondistended
Musculoskeletal: No Edema
Neuro: Awake, Alert, Oriented, No Motor Deficits and Nonfocal/Grossly Intact
Psych: Calm
--- NOTE | 2024-05-16 15:16 | W.DCSUMMARY ---
Discharge Summary
Discharge Data
Date of Admission: 05/14/24
Date of Discharge: 05/16/24
-
Pending Results: No
Hospital Course
Discharging Physician : Dr Dandre Chappell
Dis[facility] : [facility]
Primary care physician : None
Principal Discharge diagnosis :
Acute severe pericarditis
Non ischemic injury related troponin elevation
Chronic Discharge diagnosis :
History of Guillory Parkinson White syndrome
Tobacco use
Alcohol use disorder
Hospital Course :
Patient is a 34-year-old male with no significant past medical history came to ER on having sternal discomfort/chills for few days. Patient was evaluated by outpatient hospital and was diagnosed to have pericarditis, was started on ibuprofen.
Patient did not have much of improvement in symptoms and came to [place] ER for further evaluation. Reevaluation showing patient having minimal troponin leak and EKG changes confirming the diagnosis of pericarditis. Cardiology recommended for
patient to be started on higher dose ibuprofen/colchicine with admission and a cardiac MRI. Reason for pericarditis remains unclear at this point. A follow-up cardiac MRI showed patient having diffuse severe pericarditis. Echocardiogram showed
preserved ejection fraction without significant valvulopathy. Associated with this patient had significant tachycardia although no arrhythmia noted on telemetry monitoring during the hospital stay. Patient advised abstinence from tobacco and
alcohol while recovering from pericarditis. Patient was discharged to home at this point with follow-up with cardiology in office
Important imaging findings :
None
Procedure findings :
None
Discharge Plan
-
Patient Disposition: Home (Routine Discharge)
Discharge Diagnosis/Procedures: Acute pericarditis
Condition: Fair
Diet: Regular
Additional Diets: Avoid alcohol use
Activity: As tolerated
Driving Restrictions: As prior to admission
Bathing Restrictions: OK to Shower
Referrals:
Edy Reese, DO [Active] - in one to two weeks
UNKNOWN - PT DOES,NOT KNOW [Family Provider] -
Prescriptions:
New
nicotine 14 mg/24 hr Patch 24 Hour
14 mg transdermal DAILY Qty: 7 0RF
colchicine 0.6 mg Tablet
0.6 mg PO BID Qty: 60 2RF
pantoprazole 40 mg Tablet,Delayed Release (Dr/Ec)
40 mg PO DAILY Qty: 30 0RF
oxycodone 5 mg Tablet
5 mg PO Q8H PRN (Reason: mod sev pain) Qty: 15 0RF
ibuprofen 200 mg capsule
See Rx Instructions .ROUTE .COMPLEX Qty: 100 0RF
Rx Instructions:
Take 800 mg TID x 3 days, then
600 mg TID x 3 days, then
400 mg TID x 3 days, then
400 mg BID x 3 days, then
400 mg daily x 3 days, then
200 mg daily x 3 days, then stop.
Continued
melatonin 5 mg Tablet
5 mg PO HSPRN PRN (Reason: sleep)
doris extract 500 mg Capsule
500 mg PO DAILY
Emergen-C 1,000 mg Powder Effervescent In Packet
1 ea PO DAILY
turmeric root extract 1,053 mg Tablet
1,076 mg PO DAILY
Discontinued
biotin 5 mg Capsule
5 mg PO DAILY
ibuprofen 800 mg Tablet
800 mg PO Q6HPRN PRN (Reason: mild pain)
aspirin 81 mg Tablet,Delayed Release (Dr/Ec)
162 mg PO BIDPRN PRN (Reason: chest pains)
Discharge Orders:
Discharge Patient (As Directed); Ordered 05/16/24
Ordered By: Dandre Chappell
Discharge Date and Time
Discharge Date/Time: 05/16/24 11:08
Print Language: BELARUSIAN
== END 2024-05-16 11:08 | disposition home or self-care (01) | DRG 315 ==
LOC: IMU 18:32
PROVIDERS: Nurse Practitioner Family; ADMITTING PHYSICIAN Hospitalist; CONSULT PHYSICIAN Internal Medicine Cardiovascular Disease; EMERGENCY PHYSICIAN Emergency Medicine
DX: I30.9 Acute pericarditis, unspecified (principal); J98.11 Atelectasis; I45.6 Pre-excitation syndrome; F17.200 Nicotine dependence, unspecified, uncomplicated; F10.90 Alcohol use, unspecified, uncomplicated
CPT/HCPCS: 71046; 75561; 80048; 80053; 80061; 84484; 85025; 85027; 85610; 85652; 85730; 86140; 93005; 93306; 96374; 99285; 99406; A9585